=== PATIENT | female | born 1965 | race African-American/Black ===

== ENCOUNTER 2018-06-02 17:34 | Emergency (ER) | payer MEDICAID ==
[~2018-06-02] VITALS: Ht 162.6 cm; Wt 87.8 kg
[2018-06-02 20:05] VITALS: BP 127/86
== END 2018-06-02 21:00 | disposition home or self-care (01) ==
LOC: ER 20:55
DX: I10 Essential (primary) hypertension (principal); F32.9 Major depressive disorder, single episode, unspecified; M19.90 Unspecified osteoarthritis, unspecified site; F41.9 Anxiety disorder, unspecified; Z88.6 Allergy status to analgesic agent; Z90.710 Acquired absence of both cervix and uterus
CPT/HCPCS: 99281

== ENCOUNTER 2018-12-22 20:24 | Emergency (ER) | payer MEDICAID ==
[~2018-12-22] VITALS: Ht 157.5 cm; Wt 79.0 kg
[2018-12-22 23:10] LABS: HEMATOCRIT 36.9 % (36.0-48.0); HEMOGLOBIN 12.1 g/dL (12.0-16.0); MEAN CORPUSCULAR HEMOGLOBIN 28.1 pg (28.0-32.0); MEAN CORPUSCULAR VOLUME 85.9 fL (81.0-99.0); PLATELET 405 x1000/uL (130-400); RED BLOOD CELL COUNT 4.29 mill/uL (4.2-5.4); RED CELL DISTRIBUTION WIDTH 13.3 % (11.6-14.6)
[2018-12-22 23:13] LABS: CHLORIDE 99 mEq/L (98-107)
[2018-12-23] MEDS ORDERED: POTASSIUM CHLORIDE 20MEQ TABLET SR PO SCH (00:15)
[2018-12-23 00:25] VITALS: BP 165/97
== END 2018-12-23 01:10 | disposition home or self-care (01) ==
LOC: ER 20:24
DX: E87.6 Hypokalemia (principal); G47.00 Insomnia, unspecified; F41.9 Anxiety disorder, unspecified; I10 Essential (primary) hypertension; F32.9 Major depressive disorder, single episode, unspecified; Z88.6 Allergy status to analgesic agent; Z98.84 Bariatric surgery status; Z90.710 Acquired absence of both cervix and uterus
CPT/HCPCS: 36415; 85027; 93005; 99284

== ENCOUNTER 2019-02-18 16:49 | Emergency (ER) | payer MEDICAID ==
[~2019-02-18] VITALS: Ht 162.6 cm; Wt 82.0 kg
[2019-02-18 19:52] LABS: BASOPHILS % 0.8 % (0.0-2.0); EOSINOPHILS % 5.1 % (0.0-5.0); HEMATOCRIT. 27.9 % (36.0-48.0); HEMOGLOBIN. 9.2 g/dL (12.0-16.0); LYMPHOCYTES % 43.6 % (20.0-50.0); MEAN CORPUSCULAR HEMOGLOBIN 28.9 pg (28.0-32.0); MEAN CORPUSCULAR VOLUME 87.4 fL (81.0-99.0); MEAN PLATELET VOLUME 8.3 fl (7.4-10.4); MONOCYTES % 6.1 % (2.0-8.0); NEUTROPHILS % 44.4 % (40.0-76.0); PLATELET 312 x1000/uL (130-400); RED BLOOD CELL COUNT 3.19 mill/uL (4.2-5.4); RED CELL DISTRIBUTION WIDTH 15.6 % (11.6-14.6)
[2019-02-18 19:59] LABS: CHLORIDE 110 mEq/L (98-107)
[2019-02-18 20:03] LABS: ETHANOL BLOOD < 10 mg/dL
[2019-02-18] MEDS ORDERED: POTASSIUM CHLORIDE 20MEQ TABLET SR PO ONE (20:15)
[2019-02-18 20:45] LABS: *AMPHETAMINES SCREEN URINE NEGATIVE (NEGATIVE); *BARBITURATES SCREEN URINE NEGATIVE (NEGATIVE); *BENZODIAZEPINES SCREEN URINE NEGATIVE (NEGATIVE); *COCAINE SCREEN URINE NEGATIVE (NEGATIVE); METHADONE URINE SCREEN NEGATIVE (NEGATIVE)
[2019-02-18 20:46] LABS: CANNABINOID URINE SCREEN PRESUMTIVE POSITIVE (NEGATIVE); OPIATES URINE SCREEN PRESUMTIVE POSITIVE (NEGATIVE); PHENCYCLIDINE URINE SCREEN NEGATIVE (NEGATIVE)
[2019-02-18 22:20] VITALS: BP 120/81
== END 2019-02-18 22:55 | disposition home or self-care (01) ==
LOC: ER 16:49
DX: E87.6 Hypokalemia (principal); T40.605A Adverse effect of unspecified narcotics, initial encounter; I10 Essential (primary) hypertension; K21.9 Gastro-esophageal reflux disease without esophagitis; F41.9 Anxiety disorder, unspecified; F32.9 Major depressive disorder, single episode, unspecified; Z98.84 Bariatric surgery status; Z90.710 Acquired absence of both cervix and uterus; Z88.6 Allergy status to analgesic agent; Y92.89 Other specified places as the place of occurrence of the external cause
CPT/HCPCS: 36415; 80048; 80305; 80307; 80320; 80329; 85025; 93005; 99284; Z7610; G0480

== ENCOUNTER 2019-03-10 15:34 | Emergency (ER) | payer MEDICAID ==
[~2019-03-10] VITALS: Ht 165.1 cm; Wt 89.0 kg
[2019-03-10] MEDS ORDERED: HYDROCODONE/ACETAMINOPHEN 5/325MG TABLET PO ONE (16:30)
[2019-03-10 16:38] VITALS: BP 136/89
== END 2019-03-10 16:47 | disposition home or self-care (01) ==
LOC: ER 15:34
DX: Z76.0 Encounter for issue of repeat prescription (principal); G89.29 Other chronic pain; F41.9 Anxiety disorder, unspecified; F32.9 Major depressive disorder, single episode, unspecified; I10 Essential (primary) hypertension; Z88.6 Allergy status to analgesic agent; Z95.1 Presence of aortocoronary bypass graft; Z90.710 Acquired absence of both cervix and uterus
CPT/HCPCS: 99283

== ENCOUNTER 2019-09-11 16:31 | Inpatient (IN) | payer MEDICAID ==
[~2019-09-11] VITALS: Ht 157.5 cm; Wt 59.9 kg
[2019-09-11 20:00] VITALS: BP 118/75
[2019-09-12 00:57] LABS: HEMATOCRIT. 29.4 % (36.0-48.0); HEMOGLOBIN. 9.9 g/dL (12.0-16.0); MEAN CORPUSCULAR HEMOGLOBIN 28.7 pg (28.0-32.0); MEAN CORPUSCULAR VOLUME 85.6 fL (81.0-99.0); MEAN PLATELET VOLUME 8.5 fl (7.4-10.4); PLATELET 455 x1000/uL (130-400); RED BLOOD CELL COUNT 3.44 mill/uL (4.2-5.4); RED CELL DISTRIBUTION WIDTH 16.3 % (11.6-14.6)
[2019-09-12 01:02] LABS: CLARITY URINE CLOUDY (CLEAR); COLOR URINE DARK YELLOW (YELLOW); KETONES URINE NEGATIVE (NEGATIVE); LEUKOCYTE ESTERASE URINE 2+ (NEGATIVE); NITRITE URINE NEGATIVE (NEGATIVE); OCCULT BLOOD URINE TRACE (NEGATIVE); PROTEIN URINE 2+ (NEGATIVE); SPECIFIC GRAVITY URINE 1.019 (1.005-1.030)
[2019-09-12 01:04] LABS: CHLORIDE 108 mEq/L (98-107)
[2019-09-12 01:11] LABS: PHOSPHORUS 3.1 mg/dL (2.5-4.9)
[2019-09-12 01:13] LABS: CREATINE KINASE 338 IU/L (26-192)
[2019-09-12 01:16] LABS: CREATINE KINASE MB FRACTION 2.5 ng/mL (0.5-3.6)
[2019-09-12] MEDS ORDERED: POTASSIUM CHLORIDE 20MEQ TABLET SR PO ONE (01:30)
[2019-09-12] MEDS ORDERED: DEXTROSE 50% WATER 50ML SYRINGE IV ONE (01:30)
[2019-09-12] MEDS ORDERED: FUROSEMIDE 40MG/4ML VIAL IVP ONE (01:30)
[2019-09-12] MEDS ORDERED: CEFTRIAXONE 1 G PREMIX 50 ML IV ONE (01:30)
[2019-09-12 04:29] LABS: NUCLEATED RED BLOOD CELLS 1 /100 WBC
[2019-09-12 04:30] LABS: PLATELET ESTIMATE INCREASED
[2019-09-12 07:30] LABS: INR 1.3; PARTIAL THROMBOPLASTIN TIME 28.7 sec (23.4-31.0); PROTHROMBIN TIME 13.4 sec (9.6-11.0)
[2019-09-12] MEDS ORDERED: DEXT 5%/0.45% NACL 1000ML 1,000 ML IV SCH (09:30)
[2019-09-12] MEDS ORDERED: ONDANSETRON HCL 4MG/2ML INJ IV PRN (09:30)
[2019-09-12] MEDS ORDERED: ACETAMINOPHEN 325MG TABLET PO PRN (09:30)
[2019-09-12] MEDS ORDERED: CEFTRIAXONE 1 G PREMIX 50 ML IV SCH ×2 (09:30→21:00)
[2019-09-12] MEDS: POTASSIUM CHLORIDE 20MEQ TABLET SR PO SCH ×2 (09:30→12:25)
[2019-09-12] MEDS: MORPHINE SULFATE 2 MG/ML CPJ (NOT FOR IM USE) IV PRN ×2 (09:46→20:37)
[2019-09-12] MEDS: POTASSIUM CHLORIDE INJ 40 MEQ in DEXT 5% WATER 250 ML IV SCH ×2 (09:54→12:25)
[2019-09-12 11:49] LABS: HEMATOCRIT. 25.9 % (36.0-48.0); HEMOGLOBIN. 8.8 g/dL (12.0-16.0); MEAN CORPUSCULAR HEMOGLOBIN 28.7 pg (28.0-32.0); MEAN CORPUSCULAR VOLUME 84.3 fL (81.0-99.0); MEAN PLATELET VOLUME 7.7 fl (7.4-10.4); PLATELET 419 x1000/uL (130-400); RED BLOOD CELL COUNT 3.07 mill/uL (4.2-5.4); RED CELL DISTRIBUTION WIDTH 16.3 % (11.6-14.6)
[2019-09-12 12:26] LABS: PLATELET ESTIMATE INCREASED
[2019-09-12] MEDS ORDERED: MAGNESIUM 2 G PREMIX 50 ML IV ONE (13:45)
[2019-09-12 14:42] LABS: OPIATES URINE SCREEN NEGATIVE (NEGATIVE)
[2019-09-12 14:43] LABS: PHENCYCLIDINE URINE SCREEN NEGATIVE (NEGATIVE)
[2019-09-12 14:44] LABS: *COCAINE SCREEN URINE NEGATIVE (NEGATIVE); CANNABINOID URINE SCREEN PRESUMTIVE POSITIVE (NEGATIVE); METHADONE URINE SCREEN NEGATIVE (NEGATIVE)
[2019-09-12 14:45] LABS: *BENZODIAZEPINES SCREEN URINE NEGATIVE (NEGATIVE)
[2019-09-12 14:46] LABS: *BARBITURATES SCREEN URINE NEGATIVE (NEGATIVE)
[2019-09-12 14:47] LABS: *AMPHETAMINES SCREEN URINE NEGATIVE (NEGATIVE)
[2019-09-12] MEDS ORDERED: DEXT 5%/0.45% NACL KCL 40MEQ/L 1,000 ML IV SCH (15:00)
[2019-09-12] MEDS ORDERED: POTASSIUM CHLORIDE INJ 40 MEQ in DEXT 5% WATER 250 ML IV SCH (16:00)
[2019-09-12] MEDS ORDERED: AMLO10TA80 PO (18:30)
[2019-09-12] MEDS ORDERED: FERR-71 MT (18:30)
[2019-09-12] MEDS ORDERED: LOPE2TAB26 PO (18:30)
[2019-09-12] MEDS ORDERED: PARO-66 MT (18:39)
[2019-09-12] MEDS ORDERED: LOSA50TA41 PO (18:39)
[2019-09-12 18:41] VITALS: BP 145/73
[2019-09-12 20:44] VITALS: BP 118/75
[2019-09-13 00:48] VITALS: BP 133/78
[2019-09-13] MEDS: DEXT 5%/0.45% NACL KCL 40MEQ/L 1,000 ML IV SCH ×2 (02:20→14:56)
[2019-09-13 04:00] VITALS: BP 132/75
[2019-09-13] MEDS: MORPHINE SULFATE 2 MG/ML CPJ (NOT FOR IM USE) IV PRN ×3 (04:26→21:50)
[2019-09-13 07:21] LABS: FERRITIN 1050 ng/mL (10-291)
[2019-09-13 07:28] LABS: HEMATOCRIT. 25.8 % (36.0-48.0); HEMOGLOBIN. 8.5 g/dL (12.0-16.0); MEAN CORPUSCULAR HEMOGLOBIN 28.5 pg (28.0-32.0); MEAN CORPUSCULAR VOLUME 86.6 fL (81.0-99.0); MEAN PLATELET VOLUME 8.7 fl (7.4-10.4); PLATELET 374 x1000/uL (130-400); RED BLOOD CELL COUNT 2.98 mill/uL (4.2-5.4); RED CELL DISTRIBUTION WIDTH 16.7 % (11.6-14.6)
[2019-09-13 07:32] LABS: HEPATITIS B SURFACE ANTIGEN NEGATIVE
[2019-09-13 07:35] LABS: VITAMIN B12 SERUM 1770 pg/mL (211-911)
[2019-09-13 08:00] VITALS: BP 154/90
[2019-09-13 08:02] LABS: HEPATITIS A AB IGM NEGATIVE (NEGATIVE)
[2019-09-13] MEDS ORDERED: POTASSIUM CHLORIDE 20MEQ TABLET SR PO NR (08:30)
[2019-09-13 12:00] VITALS: BP 154/90
[2019-09-13] MEDS ORDERED: POTASSIUM CHLORIDE INJ 40 MEQ in DEXT 5% WATER 250 ML IV SCH (12:30)
[2019-09-13 14:13] LABS: NUCLEATED RED BLOOD CELLS 1 /100 WBC; PLATELET ESTIMATE NORMAL
[2019-09-13] MEDS: AMLODIPINE 10MG TABLET PO SCH (15:24)
[2019-09-13 16:00] VITALS: BP 127/81
[2019-09-13 20:52] VITALS: BP 153/84
[2019-09-13] MEDS ORDERED: POTASSIUM CHLORIDE INJ 40 MEQ in DEXT 5% WATER 500 ML IV NR (21:00)
[2019-09-13] MEDS: CEFTRIAXONE 1 G PREMIX 50 ML IV SCH (21:49)
[2019-09-14 00:47] VITALS: BP 122/79
[2019-09-14] MEDS: DEXT 5%/0.45% NACL KCL 40MEQ/L 1,000 ML IV SCH ×2 (03:40→18:05)
[2019-09-14 04:00] VITALS: BP 133/83
[2019-09-14] MEDS: MORPHINE SULFATE 2 MG/ML CPJ (NOT FOR IM USE) IV PRN ×2 (04:11→10:57)
[2019-09-14 06:44] LABS: HEMATOCRIT. 27.2 % (36.0-48.0); HEMOGLOBIN. 9.2 g/dL (12.0-16.0); MEAN CORPUSCULAR HEMOGLOBIN 29.3 pg (28.0-32.0); MEAN PLATELET VOLUME 8.2 fl (7.4-10.4); PLATELET 425 x1000/uL (130-400); RED BLOOD CELL COUNT 3.13 mill/uL (4.2-5.4); RED CELL DISTRIBUTION WIDTH 17.3 % (11.6-14.6)
[2019-09-14 06:58] LABS: CHLORIDE 107 mEq/L (98-107)
[2019-09-14 07:59] VITALS: BP 144/83
[2019-09-14] MEDS: AMLODIPINE 10MG TABLET PO SCH (08:24)
[2019-09-14] MEDS: POTASSIUM CHLORIDE 20MEQ TABLET SR PO SCH ×2 (10:22→13:21)
[2019-09-14 11:56] VITALS: BP 132/81
[2019-09-14 14:02] LABS: NUCLEATED RED BLOOD CELLS 1 /100 WBC; PLATELET ESTIMATE INCREASED
[2019-09-14 16:23] VITALS: BP 121/80
[2019-09-14 20:40] VITALS: BP 134/87
[2019-09-14] MEDS: CEFTRIAXONE 1 G PREMIX 50 ML IV SCH (21:23)
[2019-09-15] VITALS: BP 127/83
[2019-09-15] MEDS: MORPHINE SULFATE 2 MG/ML CPJ (NOT FOR IM USE) IV PRN ×5 (01:22→23:50)
[2019-09-15 04:37] VITALS: BP 121/85
[2019-09-15] MEDS: DEXT 5%/0.45% NACL KCL 40MEQ/L 1,000 ML IV SCH ×2 (06:13→21:51)
[2019-09-15 06:34] LABS: CHLORIDE 108 mEq/L (98-107)
[2019-09-15 07:19] LABS: HEMATOCRIT. 21.1 % (36.0-48.0); HEMOGLOBIN. 7.1 g/dL (12.0-16.0); MEAN CORPUSCULAR HEMOGLOBIN 29.7 pg (28.0-32.0); MEAN PLATELET VOLUME 8.1 fl (7.4-10.4); PLATELET 350 x1000/uL (130-400); RED CELL DISTRIBUTION WIDTH 17.6 % (11.6-14.6)
[2019-09-15 08:00] VITALS: BP 130/80
[2019-09-15] MEDS: AMLODIPINE 10MG TABLET PO SCH (09:40)
[2019-09-15 12:00] VITALS: BP 116/71
[2019-09-15 13:01] LABS: PLATELET ESTIMATE NORMAL
[2019-09-15 16:58] VITALS: BP 107/66
[2019-09-15 20:27] LABS: HEMATOCRIT 23.2 % (36.0-48.0); HEMOGLOBIN 7.8 g/dL (12.0-16.0)
[2019-09-15 20:45] VITALS: BP 130/74
[2019-09-15] MEDS: CEFTRIAXONE 1 G PREMIX 50 ML IV SCH (21:51)
[2019-09-15] MEDS ORDERED: ONDANSETRON HCL 4MG/2ML INJ IV PRN (23:45)
[2019-09-16 00:34] VITALS: BP 137/81
[2019-09-16 04:00] VITALS: BP 139/76
[2019-09-16 08:00] VITALS: BP 135/87
[2019-09-16] MEDS: DEXT 5%/0.45% NACL KCL 40MEQ/L 1,000 ML IV SCH ×3 (09:00→21:51)
[2019-09-16] MEDS: AMLODIPINE 10MG TABLET PO SCH (09:00)
[2019-09-16 09:17] LABS: HEMATOCRIT. 22.5 % (36.0-48.0); HEMOGLOBIN. 7.5 g/dL (12.0-16.0); MEAN CORPUSCULAR VOLUME 89.7 fL (81.0-99.0); MEAN PLATELET VOLUME 9.2 fl (7.4-10.4); PLATELET 290 x1000/uL (130-400); RED BLOOD CELL COUNT 2.51 mill/uL (4.2-5.4); RED CELL DISTRIBUTION WIDTH 20.7 % (11.6-14.6)
[2019-09-16] MEDS: MORPHINE SULFATE 2 MG/ML CPJ (NOT FOR IM USE) IV PRN ×2 (09:22→17:37)
[2019-09-16 10:12] LABS: CHLORIDE 106 mEq/L (98-107)
[2019-09-16 10:15] LABS: PLATELET ESTIMATE NORMAL
[2019-09-16 12:00] VITALS: BP 129/77
[2019-09-16 16:00] VITALS: BP 135/85
[2019-09-16 20:00] VITALS: BP 121/78
[2019-09-16] MEDS: CEFTRIAXONE 1 G PREMIX 50 ML IV SCH (21:51)
[2019-09-17 04:00] VITALS: BP 130/81
[2019-09-17] MEDS: MORPHINE SULFATE 2 MG/ML CPJ (NOT FOR IM USE) IV PRN (04:30)
[2019-09-17 08:00] VITALS: BP 136/81
[2019-09-17] MEDS: AMLODIPINE 10MG TABLET PO SCH (08:52)
[2019-09-17] MEDS: DEXT 5%/0.45% NACL KCL 40MEQ/L 1,000 ML IV SCH (11:27)
[2019-09-17] MEDS ORDERED: MORPHINE SULFATE 2 MG/ML CPJ (NOT FOR IM USE) IV PRN (11:45)
[2019-09-17 12:00] VITALS: BP 130/78
[2019-09-17 16:00] VITALS: BP 122/72
[2019-09-17] MEDS ORDERED: HYDR-4001 MT (16:36)
[2019-09-17 17:25] VITALS: BP 122/72
== END 2019-09-17 18:31 | disposition home health service (06) | DRG 720 ==
LOC: ER 16:31 → 6WST 09-12 01:47 → EDBEDREQTM 09-12 01:53 → EDBEDREQDT 09-12 01:53 → EDBEDREQ 09-12 01:53 → ENRESERV 09-12 15:49
PROVIDERS: ADMIT Internal Medicine; ATTEND Internal Medicine
DX: A41.9 Sepsis, unspecified organism (principal); N17.0 Acute kidney failure with tubular necrosis; E43 Unspecified severe protein-calorie malnutrition; K85.90 Acute pancreatitis without necrosis or infection, unspecified; E87.8 Other disorders of electrolyte and fluid balance, not elsewhere classified; E83.42 Hypomagnesemia; K83.8 Other specified diseases of biliary tract; I12.0 Hypertensive chronic kidney disease with stage 5 chronic kidney disease or end stage renal disease; N18.6 End stage renal disease; K76.0 Fatty (change of) liver, not elsewhere classified; D64.9 Anemia, unspecified; R74.0 Nonspecific elevation of levels of transaminase and lactic acid dehydrogenase [LDH]; E78.1 Pure hyperglyceridemia; E16.2 Hypoglycemia, unspecified; E87.6 Hypokalemia; N39.0 Urinary tract infection, site not specified; Z90.49 Acquired absence of other specified parts of digestive tract; Z90.710 Acquired absence of both cervix and uterus; Z98.84 Bariatric surgery status; Z88.8 Allergy status to other drugs, medicaments and biological substances; Z68.24 Body mass index [BMI] 24.0-24.9, adult
CPT/HCPCS: 36415; 71045; 72141; 72148; 74176; 74181; 76700; 80048; 80053; 80061; 80076; 80305; 81003; 82150; 82550; 82553; 82607; 82728; 82746; 82962; 83540; 83550; 83735; 83880; 84100; 84132; 84443; 84484; 85014; 85018; 85025; 86705; 86709; 86803; 87077; 87186; 87340; 93005; 93306; 93970; 97162; 97530; 99285; J0696; J1940; J2270; J2405; J3480; J7060; A4315